=== PATIENT | female | born 2000 | race Caucasian/White ===

== ENCOUNTER 2022-12-17 08:02 | Observation (INO) | payer OTHER, MEDICAID, SELFPAY ==
[2022-12-17 08:25] VITALS: BMI 24.2
[2022-12-17 08:33] VITALS: BP 120/76; PULSE 75
[2022-12-17 08:48] LABS: Appearance Urine Clear (Clear); Bacteria Urine None Seen /hpf; Bilirubin Urine Negative (Negative); Blood Urine 1+ (Negative); Color Urine Yellow (Yellow); Glucose Urine UA Negative (Negative); Ketones Urine Negative (Negative); Leukocyte Esterase Ur Negative LEU/UL (Negative); Nitrate Urine Negative (Negative); Non Pathogenic Casts 0-2; Protein Urine Negative (Negative); Specific Grav Ur 1.016 (1.001-1.035); Squamous Epithelial Cell Urine None seen /hpf (Few); Urobilinogen Urine 0.2 mg/dL (<2.0); WBC Urine 0-5 /hpf
[2022-12-17 08:55] LABS: Add Urine Microscopic? YES
--- NOTE | 2022-12-17 09:52 | PM.OBTRLD ---
OB - Triage/Final Diagnosis Visit Information Reason for evaluation: other (cramping) Comments/Additional reasons for admission: I have assessed the risk for this patient, Orville Angela, and determined that she would benefit from observation care. Evaluation Laboratory results: Laboratory Tests 12/17/22 08:34 Urine Color Yellow Urine Appearance Clear Urine pH 6.0 Ur Specific [place] 1.016 Urine Protein Negative Urine Glucose (UA) Negative Urine Ketones Negative Ur Blood (Man) 1+ H Urine Nitrate Negative Urine Bilirubin Negative Urine Urobilinogen 0.2 Leukocyte Esterase Rfl Negative Urine RBC 3-5 H Urine WBC 0-5 Ur Squamous Epith Cells None seen Urine Bacteria None seen Urine Casts 0-2 Vital signs: Vital Signs - 24 hr 12/17/22 08:33 Pulse Rate 75 Blood Pressure 120/76
== END 2022-12-17 09:25 | disposition home or self-care (01) ==
LOC: ANHED 08:19 → ANHOBPP 08:21
PROVIDERS: Admitting Provider Student in an Organized Health Care Education/Training Program; Emergency Provider Student in an Organized Health Care Education/Training Program; PCP Family Medicine; Visit Provider Student in an Organized Health Care Education/Training Program
DX: O26.892 Other specified pregnancy related conditions, second trimester (principal); R10.9 Unspecified abdominal pain; Z3A.26 26 weeks gestation of pregnancy
CPT/HCPCS: 81001; G0378; G0379

== ENCOUNTER 2022-12-23 10:05 | Outpatient (CLI) | payer OTHER, MEDICAID, SELFPAY ==
[2022-12-23 11:29] LABS: Basophils Percent Auto 0.2 % (0.2-1.2); Eosinophils Absolute Auto 0.1 K/mm3 (0-0.3); Eosinophils Percent Auto 1.5 % (0-4.4); Hematocrit 33.7 % (37.0-47.0); Hemoglobin 11.1 g/dL (12.0-15.0); Immature Granulocyte Absolute 0.04 K/mm3 (0.00-0.031); Immature Granulocyte Percent A 0.4 % (0-0.5); Lymphocytes Absolute Auto 1.43 K/mm3 (0.9-3.2); Mean Corpuscular HGB Conc 32.9 g/dl (32-36); Mean Corpuscular Hemoglobin 30.4 pg (26-34); Mean Corpuscular Volume 92.3 fl (80-100); Mean Platelet Volume 10.8 fl (7.4-10.4); Monocytes Absolute Auto 0.4 K/mm3 (0.1-0.6); Monocytes Percent Auto 4.2 % (2.6-8.5); Neutrophils Percent Auto 77.7 % (45.5-73.1); Platelet Count Result 197 k/mm3 (150-375); Red Blood Count 3.65 M/mm3 (4.2-5.4); Red Cell Distribution Width 12.7 % (11.5-14.5)
[2022-12-23 11:36] LABS: Glucose 1 Hour PP 50gm Dose 151 mg/dL
[2022-12-23 12:20] LABS: HIV 1/2 Ab P24 Ag Result Negative (Negative)
[2022-12-23 12:40] LABS: Hepatitis B Surface Antigen Negative (Negative)
[2022-12-23 13:24] LABS: Rubella IgG Antibody 27.7 IU/ML
[2022-12-24 08:05] LABS: Rapid Plasma Reagin Non-Reactive (NonReactive)
[2022-12-29 07:55] LABS: CMV IgG Antibody <0.60 U/mL (<0.60)
[2022-12-29 11:08] LABS: Varicella IgG Antibody <135.00 Index (>=165.00)
== END 2022-12-23 10:06 | disposition home or self-care (01) ==
PROVIDERS: PCP Family Medicine; Visit Provider Student in an Organized Health Care Education/Training Program
DX: Z34.90 Encounter for supervision of normal pregnancy, unspecified, unspecified trimester (principal); Z3A.00 Weeks of gestation of pregnancy not specified
CPT/HCPCS: 36415; 82947; 84702; 85025; 86592; 86644; 86703; 86747; 86762; 86787; 86850; 86900; 86901; 87086; 87088; 87340; G0432

== ENCOUNTER 2022-12-31 11:18 | Outpatient (CLI) | payer OTHER, MEDICAID, SELFPAY ==
[2022-12-31 11:56] LABS: Glucose Fasting Gestational 106 mg/dL (>/=95)
[2022-12-31 13:18] LABS: Glucose 1 Hour Gest 138 mg/dL (>/=180)
[2022-12-31 14:20] LABS: Glucose 2 Hour Gest 122 mg/dL (>/= 155)
[2022-12-31 15:19] LABS: Glucose 3 Hour Gest 118 mg/dL (>/=140)
== END 2022-12-31 11:19 | disposition home or self-care (01) ==
LOC: ANHLAB 11:21
PROVIDERS: PCP Family Medicine; Visit Provider Student in an Organized Health Care Education/Training Program
DX: Z36.89 Encounter for other specified antenatal screening (principal); Z3A.20 20 weeks gestation of pregnancy
CPT/HCPCS: 36415; 82951; 82952

== ENCOUNTER 2023-03-14 20:45 | Inpatient (IN) | payer OTHER, MEDICAID, SELFPAY ==
[2023-03-14] VITALS (19 sets, daily range): BP systolic 126–156; BP diastolic 81–103; PULSE 59–98; RESP 17; TEMP 36.6; O2SAT 99–100; BMI 27.0
--- NOTE | 2023-03-14 20:51 | LDADM ---
This patient, Orville Angela, was admitted to Labor/Delivery/Recovery 105 on 03/14/23 at 20:45. Plans for labor, pain management and were discussed with patient. Patient/family oriented to hospital policies and general routines including ID bracelet, bed and alarms, visiting hours, pain management, procedures, bathroom and other care routines, personal items, smoking policy, room service/diet and guest tray routines, security routines, and visiting hours. Patient/Family are encouraged to report perceived risks to care and to ask questions if they do not understand what they are told or what they should do. See OBIX for further documentation.
[2023-03-14] MEDS: LACTATED RINGERS 1,000 ML 125 ML IV CONT (21:40)
[2023-03-14 22:02] LABS: Basophils Percent Auto 0.3 % (0.2-1.2); Eosinophils Absolute Auto 0.1 K/mm3 (0-0.3); Eosinophils Percent Auto 1.1 % (0-4.4); Hematocrit 34.7 % (37.0-47.0); Hemoglobin 11.6 g/dL (12.0-15.0); Immature Granulocyte Absolute 0.06 K/mm3 (0.00-0.031); Immature Granulocyte Percent A 0.6 % (0-0.5); Lymphocytes Absolute Auto 1.93 K/mm3 (0.9-3.2); Lymphocytes Percent Auto 20.1 % (18.3-44.2); Mean Corpuscular HGB Conc 33.4 g/dl (32-36); Mean Corpuscular Hemoglobin 30.2 pg (26-34); Mean Corpuscular Volume 90.4 fl (80-100); Mean Platelet Volume 11.6 fl (7.4-10.4); Monocytes Absolute Auto 0.4 K/mm3 (0.1-0.6); Monocytes Percent Auto 4.5 % (2.6-8.5); Neutrophils Absolute Auto 7.1 K/mm3 (1.3-6.7); Neutrophils Percent Auto 73.4 % (45.5-73.1); Platelet Count Result 148 k/mm3 (150-375); Red Blood Count 3.84 M/mm3 (4.2-5.4); Red Cell Distribution Width 13.8 % (11.5-14.5); White Blood Count 9.6 K/mm3 (4.5-10.0)
[2023-03-14 22:28] LABS: Alanine Aminotransferase 24 U/L (6-35); Albumin Level 3.9 g/dL (3.5-5.1); Alkaline Phosphatase 150 U/L (38-126); Anion Gap 7 mmol/L (8-16); Aspartate Amino Transferase 28 U/L (14-36); Bilirubin,Total 0.5 mg/dL (0.2-1.3); Blood Urea Nitrogen 8 mg/dL (7-17); Calcium 9.1 mg/dL (8.4-10.2); Carbon Dioxide 23 mmol/L (22-30); Chloride 105 mmol/L (98-107); Estimated CRCL calculation 118 ml/min; Estimated Glomerular Filt Rate > 60; Glucose 109 mg/dL (65-110); Potassium 2.9 mmol/L (3.4-5.0); Sodium 135 mmol/L (137-145); Uric Acid 3.4 mg/dL (2.5-7.5)
[2023-03-14 23:08] LABS: Creatinine Urine 25.6 mg/dL; Total Protein Urine Random 22 mg/dL; Ur Ttl Prot Creatinine Ratio 0.86 mg/mg (0-0.20)
[2023-03-14 23:13] LABS: Appearance Urine Cloudy (Clear); Bacteria Urine None Seen /hpf; Bilirubin Urine Negative (Negative); Blood Urine 3+ (Negative); Color Urine Yellow (Yellow); Glucose Urine UA Negative (Negative); Ketones Urine Negative (Negative); Leukocyte Esterase Ur Trace LEU/UL (NEGATIVE); Need Manual Microscopic Reviewed; Nitrate Urine Negative (Negative); Non Pathogenic Casts 0-2; Protein Urine Negative (Negative); RBC Urine 21-50 /hpf (0-2); Specific Grav Ur 1.006 (1.001-1.035); Squamous Epithelial Cell Urine None seen /hpf (Few)
[2023-03-14 23:14] LABS: Add Urine Microscopic? YES
--- NOTE | 2023-03-14 23:33 | WPDANESEPP ---
Anes - Eval Pre Procedure Procedure: labor epidural Date/Time: 03/14/23 23:33 Surgeon: donovan Preop Diagnosis: pain during labor Pre Op Diagnosis: Cramping Patient Data Age: 22 Gender: F Height: 1.68 m Weight: 76 kg Last Vital Signs Temp 36.6 C 03/14/23 21:30 Pulse 72 03/14/23 22:15 Resp 17 03/14/23 21:30 BP 148/91 H 03/14/23 22:15 O2 Del Method Room Air 03/14/23 22:00 Allergies Allergy/AdvReac Type Severity Reaction Status Date / Time No Known Allergies Allergy Unknown Verified 03/14/23 22:26 Home Medications Medication Instructions Recorded Confirmed Type prenat.vits,lilli,[id number] 1 tablet PO DAILY 12/01/22 03/14/23 History ferrous sulfate 325 mg (65 mg 325 mg PO DAILY 02/26/23 03/14/23 History iron) tablet Laboratory Tests 03/14/23 03/14/23 03/14/23 21:58 21:58 21:58 WBC 9.6 K/mm3 (4.5-10.0) RBC 3.84 L M/mm3 (4.2-5.4) Hgb 11.6 L g/dL (12.0-15.0) Hct 34.7 L % (37.0-47.0) MCV 90.4 fl (80-100) MCH 30.2 pg (26-34) MCHC 33.4 g/dl (32-36) RDW 13.8 % (11.5-14.5) Plt Count 148 L k/mm3 (150-375) MPV 11.6 H fl (7.4-10.4) Immature Gran % (Auto) 0.6 H % (0-0.5) Neut % (Auto) 73.4 H % (45.5-73.1) Lymph % (Auto) 20.1 % (18.3-44.2) Ellis % (Auto) 4.5 % (2.6-8.5) Eos % (Auto) 1.1 % (0-4.4) Baso % (Auto) 0.3 % (0.2-1.2) Lymph # (Auto) 1.93 K/mm3 (0.9-3.2) Ellis # (Auto) 0.4 K/mm3 (0.1-0.6) Eos # (Auto) 0.1 K/mm3 (0-0.3) Baso # (Auto) 0.0 K/mm3 (0.0-0.1) Abs Immat Gran (auto) 0.06 H K/mm3 (0.00-0.031) Absolute Neuts (auto) 7.1 H K/mm3 (1.3-6.7) Absolute Nucleated RBC 0.0 K/mm3 (0.0-0.012) Nucleated RBC % 0.0 % (0.0-0.2) Sodium 135 L mmol/L Cancelled (137-145) Potassium 2.9 L mmol/L Cancelled (3.4-5.0) Chloride 105 mmol/L (98-107) Carbon Dioxide Anion Gap BUN Creatinine Estim Creat Clear Calc Estimated GFR Glucose Uric Acid Calcium Total Bilirubin AST ALT Alkaline Phosphatase Total Protein Albumin Urine Color Urine Appearance Urine pH Ur Specific [place] Urine Protein Urine Glucose (UA) Urine Ketones Ur Blood (Man) Urine Nitrate Urine Bilirubin Urine Urobilinogen Ur Leukocyte Esterase Add Ur Microanalysis Urine RBC Urine WBC Ur Squamous Epith Cells Urine Bacteria Urine Casts U Random Total Protein Urine Creatinine Protein/Creat Ratio 2 RPR 03/14/23 03/14/23 03/14/23 21:58 21:58 21:58 WBC RBC Hgb Hct MCV MCH MCHC RDW Plt Count MPV Immature Gran % (Auto) Neut % (Auto) Lymph % (Auto) Ellis % (Auto) Eos % (Auto) Baso % (Auto) Lymph # (Auto) Ellis # (Auto) Eos # (Auto) Baso # (Auto) Abs Immat Gran (auto) Absolute Neuts (auto) Absolute Nucleated RBC Nucleated RBC % Sodium Potassium Chloride Cancelled Carbon Dioxide 23 mmol/L Cancelled (22-30) Anion Gap 7 L mmol/L Cancelled (8-16) BUN 8 mg/dL (7-17) Creatinine Estim Creat Clear Calc
[2023-03-14] MEDS: POTASSIUM CHLORIDE 20 MEQ ER TABLET 40 MEQ PO (23:55)
[2023-03-15] VITALS (176 sets, daily range): BP systolic 113–191; BP diastolic 66–170; PULSE 56–168; RESP 15–18; TEMP 36.4–37.7; O2SAT 80–100
[2023-03-15] MEDS: LACTATED RINGERS 1,000 ML 125 ML IV CONT (05:01)
[2023-03-15] MEDS: OXYTOCIN 30 UNITS/NS 500 ML 30 UNITS/500 ML BAG 999 UNITS IV CONT (08:58)
[2023-03-15] MEDS: OXYTOCIN 30 UNITS/NS 500 ML 30 UNITS/500 ML BAG 125 UNITS IV CONT (09:13)
--- NOTE | 2023-03-15 09:37 | PM.OBPRVD ---
OB - Delivery Note Procedure Delivery date: 03/15/23 Procedure: Spontaneous vaginal delivery Delivery monitor: External FHT and Internal Uterine Route of delivery: Laceration Description: Vaginal (left ) Delivery repair: vicryl (3.0 ) Specimen: No Quantitative Blood Loss (ml): 200 Anesthesia type: Epidural Disposition: Floor Complications: None Narrative: She was admitted after confirmed ROM plus. She progressed spontaneously into active labor. She dilated to complete and delivered a male infant over intact perineum. Infant's nose mouth suctioned at perineum and infant was vigorously crying and placed on maternal abdomen. Delayed cord clamping for 45 seconds until cord apulsatile. Placenta delivered spontaneously and intact. Trailing membranes cleared from lower uterine segment. Left vaginal laceration near introitus repaired with several figure of eight sutures. Hemostasis noted. She tolerated procedure well. EBL 200cc. Baby Date of : 03/15/23 Time of : 08:43 Weeks of gestation at delivery: 38 Infant gender: Male Weight (pounds): 8 Weight (ounces): 1 presentation: vertex position: Left Occiput Anterior Placenta delivery description: Spontaneous Cord Vessel Description: 3 Vessels, Clamped/Cut and Delayed Cord Clamping score one minute: 9 score five minutes: 9 Narrative: She was admitted after confirmed S
--- NOTE | 2023-03-15 09:37 | PM.IMHP ---
H&P: HPI History of Present Illness Date/Time: 03/15/23 09:37 Chief Complaint: Decreased movement and increased discharge Narrative: She is G1 at 38 weeks admitted after she presented to L and D for decreased movement. tracing reassuring. She had irregular contractions. She had increased wetness on initial evaluation and a SROM check confirmed SROM. She states questionable leaking at 6pm 03/14/23. She was admitted for PROM. [facility] late presentation to care. Review of Systems Review of Systems: All systems reviewed & are unremarkable except as noted in HPI and below Constitutional: Constitutional: Reports no additional constitutional complaints and Denies headache(s) Eyes: Eyes: Denies spots in vision ENT: Reports system reviewed and no additional complaints, except as documented and Denies headache(s) Cardiovascular: Cardiovascular: Denies chest pain and Denies dyspnea Respiratory: Respiratory: Denies dyspnea Gastrointestinal: Gastrointestinal: Reports no additional gastrointestinal complaints Genitourinary: Genitourinary: Reports amenorrhea Musculoskeletal: Musculoskeletal: Reports no additional musculoskeletal complaints Integumentary/Breasts: Skin/Breast: Denies breast mass and Denies rash Neurologic: Denies headache(s) Psychiatric: Psychiatric: Reports no additional psychiatric complaints [facility] Family History Family History Father Alcohol abuse Grandparent Skin cancer Social History Social History Smoking status: Never smoker Alcohol intake: never Substance use: never Substance use type: does not use Lack of Transportation: No Lack of Food: Never True Current Housing: I Have Housing Concerned About Future Housing: No Difficulty Paying Gas/Electric Bills: No Difficulty Paying for Meds: No Currently Unemployed: No Education: High School Diploma/GED Difficulty w/ Childcare or Family Care: No Living arrangements: with family Occupation/Education: unemployed Gender identity (if verbalized by the patient): Female Sexual Orientation (if Verbalized by the Patient): Straight or Heterosexual Spiritual care concerns: No Meds Home Medications and Allergies Home Medications Medication Instructions Recorded Confirmed Type prenat.vits,lilli,kmt-tivl-bmfqf 1 tablet PO DAILY 12/01/22 03/14/23 History ferrous sulfate 325 mg (65 mg 325 mg PO DAILY 02/26/23 03/14/23 History iron) tablet Allergies Allergy/AdvReac Type Severity Reaction Status Date / Time No Known Allergies Allergy Unknown Verified 03/14/23 22:26 Vital Signs Vital Signs - 24 hr 03/14/23 21:31 03/14/23 21:45 03/14/23 22:01 Temperature Pulse Rate 67 79 59 L Respiratory Rate Blood Pressure 141/96 H 145/95 H 134/82 Pulse Oximetry Oxygen Delivery 03/14/23 22:15 03/14/23 21:30 03/14/23 23:34 Temperature 97.9 F Pulse Rate 72 Respiratory Rate 17 Blood Pressure 148/91 H Pulse Oximetry 100 Oxygen Delivery 03/14/23 23:36 03/14/23 23:39 03/14/23 23:41 Temperature Pulse Rate 94 Respiratory Rate Blood Pressure 156/103 H Pulse Oximetry 100 100 Oxygen Delivery 03/14/23 23:45 03/14/23 23:46 03/14/23 23:48 Temperature Pulse Rate 75 Respiratory Rate Blood Pressure 148/93 H Pulse Oximetry 100 100 Oxygen Delivery 03/14/23 23:50 03/14/23 23:51 03/14/23 23:51 Temperature Pulse Rate 83 Respiratory Rate Blood Pressure 141/94 H Pulse Oximetry 100 100 Oxygen Delivery 03/14/23 23:52 03/14/23 23:54 03/14/23 23:57 Temperature Pulse Rate 76 98 82 Respiratory Rate Blood Pressure 126/81 141/103 H 133/103 H Pulse Oximetry 100 99 Oxygen Delivery 03/14/23 23:59 03/15/23 00:01 03/15/23 00:03 Temperature Pulse Rate 65 75 Respiratory Rate Blood Pressure 137/76 140/85 Puls
--- NOTE | 2023-03-15 11:10 | OBPPTRN ---
Patient transferred to post room #291 via wheelchair. Support person present. Oriented to unit, room, information board, rooming in, admission packet and security measures. Patient verbalizes understanding.
[2023-03-15] MEDS: IBUPROFEN 600 MG TABLET PO ×2 (11:22→19:33)
[2023-03-15] MEDS: WITCH HAZEL 40 PADS 1 PAD TOPICAL (11:22)
[2023-03-15] MEDS: POTASSIUM CHLORIDE 20 MEQ ER TABLET 40 MEQ PO (11:25)
[2023-03-15] MEDS: ACETAMINOPHEN 325 MG TABLET 650 MG PO (19:35)
[2023-03-16 04:14] VITALS: BP 120/84; PULSE 78; RESP 18; TEMP 36.8
[2023-03-16 04:15] LABS: Hematocrit 28.4 % (37.0-47.0); Hemoglobin 9.4 g/dL (12.0-15.0)
[2023-03-16 04:23] LABS: Potassium 3.4 mmol/L (3.4-5.0)
[2023-03-16 07:41] LABS: Rapid Plasma Reagin Non-Reactive (NonReactive)
[2023-03-16 07:45] VITALS: BP 133/84; PULSE 121; RESP 16; TEMP 36.6; O2SAT 99
[2023-03-16 09:00] VITALS: PULSE 121; RESP 16; O2SAT 99
--- NOTE | 2023-03-16 11:58 | PM.OBPNVD ---
OB - PN: Subj Subjective Date/time seen: 03/16/23 12:00 Narrative: PPD#1 Orville reports doing well today. Her bleeding is [employer]. Her pain is controlled. She is tolerating regular diet, voiding, passing gas, and ambulating without issues. She is breast and bottle feeding. She would like her son circumcised. OB - PN: Obj Data Labs 03/16/23 04:00 03/16/23 04:00 Labs: Laboratory Results - last 24 hr 03/14/23 03/16/23 21:58 04:00 Hgb 9.4 L Hct 28.4 L Potassium 3.4 RPR Non-reactive OB - PN A/P Assessment and Plan (1) Normal vaginal delivery of first : Code(s): O80 - Encounter for full-term uncomplicated delivery Status: Acute Plan day: 1 Plan: routine care and discharge home (tomorrow) Comments: - Pelvic rest; take meds as prescribed - ER return precautions: fever, n/v/abd pain, bleeding, HTN Time Spent With Patient Time: Total time spent is greater than 50% in coordination of care (as documented) at patient's floor/unit and/or counseling patient: Review of Systems Constitutional: Constitutional: Denies chills, Denies fever(s) and Denies headache(s) Eyes: Eyes: Denies change in vision ENT: Denies dizziness and Denies headache(s) Cardiovascular: Cardiovascular: Denies chest pain, Denies palpitations and Denies dyspnea Respiratory: Respiratory: Denies cough and Denies dyspnea Gastrointestinal: Gastrointestinal: Denies nausea and Denies vomiting Neurologic: Denies dizziness and Denies headache(s) Endocrine: Endocrine: Denies palpitations Exam Const: General: cooperative, comfortable and no acute distress Orientation/consciousness: patient oriented x3 Resp: Effort & Inspection: normal respiratory effort Auscultation: clear to auscultation bilaterally Cardio: Rate: regular rate GI: Inspection: non-distended GI Palp: No abdominal tenderness and Yes Soft to palpation Auscultation: normal bowel sounds : Other: fundus firm Skin: General skin exam: normal color Neuro: General: patient oriented x3 Extrem: General: normal to inspection Psych: Appearance: grossly normal Affect: normal affect Attitude: cooperative
--- NOTE | 2023-03-16 12:01 | PC.NURSE ---
1020 Introductions were made, then consulted with patient to assess needs related to . Mother led the conversation with her?plans to feed?her and the?experience so far. Mother works well with her with encouragement and education. Encouraged understanding of the benefits of skin to skin (demonstrating unwrapping and placing upright on her chest), stimulating with massage touch, changing positions to encourage wakefulness, how to watch for early feeding cues, responsive feeding, feeding on demand (aiming for 8-12 times in 24 hours, about every 2-3 hours), milk production, building/maintaining a milk supply, duration of feeding, signs of adequate intake/output and how to record on the feeding sheet. Reviewed positioning and ear, shoulder, hip alignment, supporting the breast to facilitate a deep latch, asymmetrical latch (off-center), leading with the chin with a big, open, wide gape and body close to mother. Infant latched optimally to the both breasts in cross cradle position. Education given to mother of how to visualize suck/swallow ratios and listen for drinking at the breast. was [able/unable] to maintain latch without discomfort to mother. Nipple care reviewed with optimal latch and good positioning. Reminding mother of comfort measures of healing with a warm and wet washcloth to rinse breast, then leave open to air-dry as needed. Reviewed good handwashing when or touching the breast/nipples to prevent infection. Resources used to facilitate learning were used with the visual handouts/mom and baby guide. Mother voiced understanding of skin to skin, stimulating with massage touch, responsive feedings, hand expressed colostrum, talking to to encourage if it has been 2 -2.5 hours since the start of the last , to call if infant does not latch, or if there is discomfort with . Resources provided for inpatient/outpatient with business card, feeding sheet and the mom/baby guide. Mother voiced understanding of information, demonstrated learning and will call if there is a request for assistance. Reported to primary RN.
--- NOTE | 2023-03-16 12:43 | WPDANLDPN2 ---
Anes-Prog Note L&D Date/Time: 03/16/23 12:43 Neuro status: Neuro function grossly intact. Vital Signs: Last Vital Signs Temp 36.6 C 03/16/23 07:45 Pulse 121 H 03/16/23 07:45 Resp 16 03/16/23 07:45 BP 133/84 03/16/23 07:45 Pulse Ox 99 03/16/23 07:45 O2 Del Method Room Air 03/15/23 19:58 Pain score (VAS): 0 Patient feedback: Patient satisfied with anesthetic care.
[2023-03-16] MEDS: POLYSACCHARIDE IRON COMPLEX 150 MG CAPSULE PO (14:05)
[2023-03-16] MEDS: DOCUSATE SODIUM 100 MG CAPSULE PO (14:05)
[2023-03-16] MEDS: IBUPROFEN 600 MG TABLET PO (14:05)
[2023-03-16] MEDS: MULTIVIT/MIN/PREN/FOL AC/IRON TABLET 1 TAB PO (14:05)
--- NOTE | 2023-03-16 16:34 | PC.NURSE ---
1545 Assisted mother with helping baby to latch on. Baby is tense with feeding and needs to be relaxed in order to latch onto breasts. reminded mother to make sure he is open wide with latch to avoid sore nipples. Football hold and laid back position used to assist with . Baby did not like the football hold and displayed more tension with this position. Reported feeding time and duration at the breasts. Encouraged mother to talk to her nurse about the side-lying position with next feeding if desired. Mother voiced understanding of information, demonstrated learning and will call if there is a request for assistance. Reported to primary RN.
[2023-03-16 18:45] VITALS: BP 124/81; PULSE 89; RESP 16; TEMP 36.8
[2023-03-17] MEDS: IBUPROFEN 600 MG TABLET PO (05:00)
--- NOTE | 2023-03-17 05:00 | PC.NURSE ---
Patient instructed to view the discharge video Mother & Baby Care, The First Two Weeks . Patient was given the opportunity and encouraged to ask questions. Patient verbalized understanding of information shared and has been given the mother/baby guide for home reference.
[2023-03-17 08:05] VITALS: BP 129/79; PULSE 95; RESP 18; TEMP 36.9; O2SAT 100
[2023-03-17] MEDS: DOCUSATE SODIUM 100 MG CAPSULE PO (08:15)
[2023-03-17] MEDS: ACETAMINOPHEN 325 MG TABLET 650 MG PO (08:16)
[2023-03-17] MEDS: POLYSACCHARIDE IRON COMPLEX 150 MG CAPSULE PO (08:17)
[2023-03-17] MEDS: MULTIVIT/MIN/PREN/FOL AC/IRON TABLET 1 TAB PO (08:17)
--- NOTE | 2023-03-18 08:04 | PM.OBDSVD ---
DS: Admitting Diagnosis Discharge Date 03/17/23 Admitting Diagnosis SROM Labor DS: Discharge Diagnosis Discharge Diagnosis (1) Normal vaginal delivery of first : Code(s): O80 - Encounter for full-term uncomplicated delivery Status: Acute OB - DS: Summary OB Procedures : Ultrasound OB Procedures Intrapartum: Spontaneous Vag Delivery OB Procedures: : None Peripartum Data Infant Delivery Method: Natural Vaginal complications: none 1: Gender: Male Disposition of : home Status at Discharge Functional status at discharge: independent ambulation Overall status at discharge: patient is back to baseline Time Spent with Patient Time attestation: Total time spent providing and/or coordinating discharge services: Time spent: Less than 30 minutes Exam Const: General: cooperative, healthy appearing, comfortable and no acute distress Orientation/consciousness: patient oriented x3 Resp: Effort & Inspection: normal respiratory effort Auscultation: clear to auscultation bilaterally Cardio: Rate: regular rate GI: Inspection: non-distended GI Palp: No abdominal tenderness and Yes Soft to palpation Auscultation: normal bowel sounds : Other: fundus firm Skin: General skin exam: normal color Neuro: General: patient oriented x3 Extrem: General: normal to inspection Psych: Appearance: grossly normal Affect: normal affect Attitude: cooperative Discharge Plan Discharge Attending physician on discharge: Lety Corona Discharging Clinician: Lety Corona Anticipated Discharge Date/Time: 03/17/23 11:00 Patient Disposition: Home, Self-Care Activity: may shower and pelvic rest Diet: regular Discharge Instructions: Education: Mom and Baby Guide Given to: Mother Follow-Up: Call your delivering provider's office for an appointment to be seen in: 3 weeks Mom and baby should come to the [facility] for the follow-up appointment. Appointment Date/Time: March 18, 2023 at 10:00 am What to expect at your follow-up visit: Blood Pressure Check Physical Assessment Call [phone] if you are unable to keep your appointment time. BREAST CARE: * Wear a snug supportive bra. * For engorgement discomfort: Breast Feeding: * Apply warm moist washcloths * Express milk as needed to relieve engorgement * Wear loose clothing * For sore nipples: * Identify correct latch-on * Apply warm moist washcloths before and after nursing * Air dry nipples after nursing * May apply Lansinoh cream to nipples EPISIOTOMY/PERINEAL CARE: * Until bleeding stops, use your marshal bottle after urinating * Change your pad frequently throughout the day * You may take sitz baths several times a day (fill your bathtub with warm water and soak for 20 minutes.) Do NOT bathe in the water * No tub baths until seen by your physician - You may shower ACTIVITY: * Rest as much as possible. * Do not exercise or lift anything heavier than your baby * Avoid stairs or driving as much as possible for about two weeks. * Do not put anything into the vagina. No douching, tampons, or sexual activity until seen by physician. NOTIFY PHYSICIAN IF YOU HAVE ANY QUESTIONS OR IF ANY OF THE FOLLOWING SYMPTOMS OCCUR: * If your vaginal area becomes red, swollen, or more painful than what you have experienced in the hospital. * If your vaginal bleeding becomes foul smelling. * If your vaginal bleeding becomes more heavy than a period or if your bleeding changes from the brownish-red/period color that it is now to bright red. However, you may pass an occasional walnut-sized clot once or twice for the first week . * If you experience a sharp, shooting pain in your calves. * If you discover a hard, reddened area on your breast or if you experience flu-like symptoms. DIET:
[2023-03-18 10:25] VITALS: BP 120/89; PULSE 88; RESP 18; TEMP 37; O2SAT 100
== END 2023-03-17 12:08 | disposition home or self-care (01) | DRG 807 ==
LOC: ANHLDR 21:33 → ANHOB2 03-15 11:16
PROVIDERS: Admitting Provider Obstetrics & Gynecology; PCP Family Medicine; Visit Provider Obstetrics & Gynecology
DX: O71.4 Obstetric high vaginal laceration alone (principal); Z37.0 Single live birth; Z3A.39 39 weeks gestation of pregnancy
CPT/HCPCS: 36415; 80053; 81001; 82570; 84112; 84132; 84156; 84550; 85014; 85018; 85025; 86592; 86850; 86900; 86901; A9270; J2590; J2795; J7120

== ENCOUNTER 2023-05-27 11:40 | Outpatient (CLI) | payer OTHER, MEDICAID, SELFPAY ==
[2023-05-27 12:36] LABS: Beta HCG Quantitative < 2.39 mIU/ML
== END 2023-05-27 11:41 | disposition home or self-care (01) ==
LOC: ANHLAB 11:42
PROVIDERS: PCP Family Medicine; Visit Provider Obstetrics & Gynecology
DX: N92.6 Irregular menstruation, unspecified (principal)
CPT/HCPCS: 36415; 84702